=== PATIENT | male | born 2000 | race Caucasian/White ===

== ENCOUNTER 2022-06-18 13:06 | Outpatient (CLI) | payer MEDICAID, SELFPAY | END 2022-06-18 13:07 | disposition home or self-care (01) | LOC: AMB 07-01 12:56 | PROVIDERS: Visit Provider Family Medicine | DX: T43.592A Poisoning by other antipsychotics and neuroleptics, intentional self-harm, initial encounter (principal); R53.83 Other fatigue; Y92.009 Unspecified place in unspecified non-institutional (private) residence as the place of occurrence of the external cause | CPT/HCPCS: A0425; A0427 ==